=== PATIENT | female | born 1980 | race Two or more races ===

== ENCOUNTER 2019-02-08 18:05 | Emergency (ER) | payer MEDICAID, OTHER ==
[~2019-02-08] VITALS: Ht 165.1 cm; Wt 71.7 kg
[2019-02-08] MEDS ORDERED: ONDANSETRON ODT 4 MG TAB PO ONE (18:45)
[2019-02-08] MEDS ORDERED: MORPHINE SULFATE 4 MG/ML SYR/VIAL IV ONE (18:45)
[2019-02-08] MEDS ORDERED: SODIUM CHLORIDE 0.9% 1,000 ML IV ONE (18:45)
[2019-02-08 19:08] LABS: Albumin 3.9 g/dL (3.4-5.0); Calcium 11.3 mg/dL (8.5-10.1); Potassium 3.4 mmol/L (3.5-5.1)
[2019-02-08 19:10] LABS: Magnesium 2.3 mg/dL (1.6-2.6)
[2019-02-08 19:11] LABS: BUN/Creatinine Ratio 11.4; Bilirubin, Total 1.3 mg/dL (0.2-1.0); Total Protein 8.3 g/dL (6.4-8.2)
[2019-02-08 19:14] LABS: Basophils # (auto) 0.1 uL; Eosinophils # (auto) 0.1 uL; Eosinophils % (auto) 1.4 % (0.0-7.0); Hemoglobin 11.2 g/dL (12.2-16.2); Lymphocytes # (auto) 2.7 uL; Monocytes # (auto) 0.7 uL; Red Blood Cells 4.06 10^6/uL (4.0-5.20)
[2019-02-08] MEDS: PROMETHAZINE HCL 25 MG/ML 1ML IV ONE (19:15)
[2019-02-08 19:16] LABS: Basophils % (auto) 0.9 % (0.0-2.0); Hematocrit 34.2 % (36.0-46.0); Lymphocytes % (auto) 27.8 % (10.0-50.0); Mean Corpuscular Hemoglobin 27.7 pg (28.0-32.0); Mean Corpuscular Hgb Conc. 32.9 g/dL (32.0-36.0); Mean Corpuscular Volume 84.4 fL (80.0-100.0); Monocytes % (auto) 7.1 % (0.0-12.0); Neutrophils # (auto) 6.1 uL; Neutrophils % (auto) 62.8 % (37.0-80.0); Red Cell Distribution Width 16.5 % (11.8-14.3); White Blood Cell 9.8 10^3/uL (4.4-10.8)
[2019-02-08 19:17] LABS: Urine Bacteria NONE SEEN /hpf (None Seen); Urine Blood Negative /uL (Negative); Urine Specific Gravity 1.004 (1.001-1.035); Urine WBC 1 /hpf (0 - 5)
[2019-02-08 19:25] LABS: INR 0.93 (0.9-1.15); Partial Thromboplastin Time 24.6 sec (23.64-32.05)
[2019-02-08 19:45] LABS: Lactic Acid w/Reflex 2.1 mmol/L (0.4-2.0)
[2019-02-08] MEDS ORDERED: LEVOFLOXACIN 750MG 150 ML IV SCH (20:15)
[2019-02-08] MEDS ORDERED: VANCOMYCIN PER PHARMACY 1,000 MG IV SCH (20:15)
[2019-02-08] MEDS ORDERED: SODIUM CHLORIDE 0.9% 2,150 ML IV ONE ×2 (20:15)
[2019-02-08 21:05] LABS: Platelet Count (auto) 516 10^3/uL (140-450)
[2019-02-08] MEDS ORDERED: HYDROmorphone HCL 2 MG/ML VL IV ONE (21:30)
[2019-02-08] MEDS: VANCOMYCIN 1GM/250ML 250 ML IV SCH ×2 (22:00→23:00)
[2019-02-09] MEDS: PROMETHAZINE HCL 25 MG/ML 1ML IV ONE (02:15)
[2019-02-09 02:57] VITALS: BP 151/86
== END 2019-02-09 03:25 | disposition short-term general hospital (02) ==
LOC: EDBD 18:05 → ER 18:05
DX: S30.1XXA Contusion of abdominal wall, initial encounter (principal); G89.18 Other acute postprocedural pain; Z90.710 Acquired absence of both cervix and uterus; Z88.0 Allergy status to penicillin; X58.XXXA Exposure to other specified factors, initial encounter; Y93.89 Activity, other specified; Y99.8 Other external cause status; Y92.89 Other specified places as the place of occurrence of the external cause
CPT/HCPCS: 36415; 36600; 71045; 74176; 80053; 81001; 81025; 82553; 82805; 83605; 83690; 83735; 84484; 85025; 85384; 85610; 85730; 86850; 86900; 86901; 87040; 87086; 93005; 96365; 96367; 96375; 99285; J1170; J1956; J2270; J2550; J3370; J7030; Q0162